=== PATIENT | female | born 1995 | race Two or more races ===

== ENCOUNTER 2023-01-12 13:56 | Inpatient (IN) | payer MEDICAID ==
[~2023-01-12] VITALS: Ht 154.9 cm; Wt 58.0 kg
[2023-01-12] MEDS ORDERED: LIDOCAINE VISCOUS 2% 15ML UD MT ONE (14:30)
[2023-01-12] MEDS ORDERED: MAALOX PLUS or MAALOX 30 ML PO ONE (14:30)
[2023-01-12 14:39] LABS: Basophils # (auto) 0 10 ^3/uL (0-0.2); Basophils % (auto) 0.2 % (0.0-2.0); Eosinophils # (auto) 0.1 10 ^3/uL (0-0.8); Eosinophils % (auto) 0.6 % (0.0-7.0); Hemoglobin 14.1 g/dL (12.2-16.2); Lymphocytes # (auto) 1.1 10 ^3/uL (0.4-5.4); Lymphocytes % (auto) 8.8 % (10.0-50.0); Mean Corpuscular Hemoglobin 29.8 pg (28.0-32.0); Mean Corpuscular Hgb Conc. 33.5 g/dL (32.0-36.0); Monocytes # (auto) 0.4 10 ^3/uL (0-1.3); Monocytes % (auto) 3.5 % (0.0-12.0); Neutrophils # (auto) 10.5 10 ^3/uL (1.6-8.6); Neutrophils % (auto) 86.9 % (37.0-80.0); Red Blood Cells 4.72 10^6/uL (4.0-5.20); Red Cell Distribution Width 12.5 % (11.8-14.3); White Blood Cell 12.1 10^3/uL (4.4-10.8)
[2023-01-12 14:57] LABS: Alanine Aminotransferase 11 U/L (7-40); Albumin 4.6 g/dL (3.2-4.8); Alkaline Phosphatase 85 U/L (46-116); Anion Gap 7 (5-15); Aspartate Aminotransferase 17 U/L (13-40); BUN/Creatinine Ratio 9.8 (10.0-20.0); Blood Urea Nitrogen 8 mg/dL (9-23); Calcium 9.4 mg/dL (8.7-10.4); Carbon Dioxide 26 mmol/L (20-30); Chloride 103 mmol/L (98-107); Glucose 96 mg/dL (74-106); Lipase 48 U/L (12-53); Potassium 3.7 mmol/L (3.5-5.1); Sodium 136 mmol/L (136-145)
[2023-01-12 14:58] LABS: Bilirubin, Total 0.7 mg/dL (0.2-1.0); Total Protein 7.9 g/dL (5.7-8.2)
[2023-01-12 16:20] LABS: Urine Bacteria NONE SEEN /hpf (None Seen); Urine Blood Negative /uL (Negative); Urine Clarity Clear (Clear); Urine Color Yellow (Yellow); Urine Mucus FEW (None Seen); Urine Protein, UAD TRACE (Negative); Urine Specific Gravity 1.029 (1.001-1.035); Urine Urobilinogen Normal (Negative); Urine WBC 1 /hpf (0 - 5); Urine pH 5.5 (5.0-8.0)
[2023-01-12] MEDS ORDERED: HYDROmorphone HCL 2 MG/ML VL/or syr IV ONE (18:00)
[2023-01-12] MEDS ORDERED: SODIUM CHLORIDE 0.9% 1,000 ML IV ONE (18:00)
[2023-01-12] MEDS ORDERED: ACETAMINOPHEN 325 MG TAB PO PRN (22:45)
[2023-01-12] MEDS ORDERED: ONDANSETRON HCL 4 MG/2 ML VIAL IV PRN (22:45)
[2023-01-13] VITALS (8 sets, daily range): BP systolic 97–102; BP diastolic 61–62; PULSE 58–80; RESP 10–19; TEMP 97.7–98.7; O2SAT 94–100
[2023-01-13] MEDS ORDERED: cefTRIAXone 1GM/50ML D5W 50 ML IV ONE
[2023-01-13] MEDS: D5W/SOD CHLO 0.9% 1,000 ML IV SCH ×2 (00:10→09:28)
[2023-01-13 06:58] LABS: Basophils # (auto) 0 10 ^3/uL (0-0.2); Basophils % (auto) 0.2 % (0.0-2.0); Eosinophils # (auto) 0 10 ^3/uL (0-0.8); Eosinophils % (auto) 0.2 % (0.0-7.0); Hematocrit 39.5 % (36.0-46.0); Lymphocytes # (auto) 1.2 10 ^3/uL (0.4-5.4); Lymphocytes % (auto) 9.6 % (10.0-50.0); Mean Corpuscular Hemoglobin 29.6 pg (28.0-32.0); Mean Corpuscular Hgb Conc. 33.1 g/dL (32.0-36.0); Mean Corpuscular Volume 89.5 fL (80.0-100.0); Monocytes # (auto) 0.8 10 ^3/uL (0-1.3); Monocytes % (auto) 6.3 % (0.0-12.0); Neutrophils # (auto) 10.4 10 ^3/uL (1.6-8.6); Neutrophils % (auto) 83.7 % (37.0-80.0); Red Blood Cells 4.41 10^6/uL (4.0-5.20); Red Cell Distribution Width 12.6 % (11.8-14.3); White Blood Cell 12.4 10^3/uL (4.4-10.8)
[2023-01-13 07:07] LABS: INR 1.14 (0.9-1.15); Partial Thromboplastin Time 27.9 SEC (24.5-34.5); Prothrombin Time 11.9 sec (9.3-11.8)
[2023-01-13 07:21] LABS: Alkaline Phosphatase 76 U/L (46-116); Anion Gap 5 (5-15); BUN/Creatinine Ratio 12.5 (10.0-20.0); Blood Urea Nitrogen 9 mg/dL (9-23); Calcium 8.6 mg/dL (8.7-10.4); Carbon Dioxide 27 mmol/L (20-30); Chloride 105 mmol/L (98-107); Glucose 108 mg/dL (74-106); Potassium 3.9 mmol/L (3.5-5.1); Sodium 137 mmol/L (136-145)
[2023-01-13 07:22] LABS: Albumin 4.2 g/dL (3.2-4.8); Aspartate Aminotransferase 11 U/L (13-40)
[2023-01-13 07:23] LABS: Alanine Aminotransferase < 9 U/L (7-40); Bilirubin, Total 0.6 mg/dL (0.2-1.0); Total Protein 6.9 g/dL (5.7-8.2)
[2023-01-13] MEDS ORDERED: cefTRIAXone 1GM/50ML D5W 50 ML IV SCH ×2 (09:00→21:00)
[2023-01-13] MEDS ORDERED: HYDROmorphone HCL 2 MG/ML VL/or syr ONE (12:44)
[2023-01-13] MEDS ORDERED: SUGAMMADEX 200mg/2ml Vial (100MG/ML) IV ONE (12:44)
[2023-01-13] MEDS ORDERED: fentaNYL CITRATE 100 MCG/2 ML VL ONE (12:44)
[2023-01-13] MEDS ORDERED: MIDAZOLAM HCL 2MG/2ML 2ml VIAL (1mg/ml) ONE (12:44)
[2023-01-13] MEDS ORDERED: PROPOFOL 10 MG/ML 20 ML IV ONE (12:45)
[2023-01-13] MEDS ORDERED: ONDANSETRON HCL 4 MG/2 ML VIAL ONE (12:45)
[2023-01-13] MEDS ORDERED: GLYCOPYRROLATE 0.2 MG/ML 1ML VIAL ONE (12:45)
[2023-01-13] MEDS ORDERED: KETOROLAC TROMETH 30 MG/ML 1ML VIAL ONE (12:45)
[2023-01-13] MEDS ORDERED: LIDOCAINE 2% (LOCAL ANESTH.) PF 5ml SDV ONE (12:45)
[2023-01-13] MEDS ORDERED: DexAMETHasone SOD PHOS 10MG/1ML VIAL INJ ONE (12:45)
[2023-01-13] MEDS ORDERED: LIDOCAINE W/ EPINEPHRINE 1% 20ML VIAL ONE (13:45)
[2023-01-13] MEDS ORDERED: ONDANSETRON HCL 4 MG/2 ML VIAL IV PRN (16:00)
[2023-01-13] MEDS ORDERED: HYDROmorphone HCL 2 MG/ML VL/or syr IV PRN (16:00)
[2023-01-13] MEDS ORDERED: ACETAMINOPHEN/CODEINE#3 (300/30mg) TAB PO PRN (16:30)
[2023-01-13] MEDS: SODIUM CHLORIDE 0.9% 1,000 ML IV SCH (18:18)
[2023-01-13] MEDS: metroNIDAZOLE 500MG/100ML 100 ML IV SCH (22:12)
[2023-01-14] MEDS: HYDROcodone-ACET 5/325MG TAB PO PRN ×3 (02:48→16:53)
[2023-01-14 05:00] VITALS: BP 108/49; PULSE 59; RESP 14; TEMP 97.6; O2SAT 99
[2023-01-14 06:20] LABS: Basophils # (auto) 0 10 ^3/uL (0-0.2); Basophils % (auto) 0.1 % (0.0-2.0); Eosinophils # (auto) 0 10 ^3/uL (0-0.8); Hematocrit 36.2 % (36.0-46.0); Hemoglobin 12.2 g/dL (12.2-16.2); Lymphocytes # (auto) 0.9 10 ^3/uL (0.4-5.4); Lymphocytes % (auto) 5.8 % (10.0-50.0); Mean Corpuscular Hemoglobin 30.2 pg (28.0-32.0); Mean Corpuscular Hgb Conc. 33.7 g/dL (32.0-36.0); Mean Corpuscular Volume 89.4 fL (80.0-100.0); Monocytes # (auto) 0.8 10 ^3/uL (0-1.3); Monocytes % (auto) 5.5 % (0.0-12.0); Neutrophils # (auto) 13.4 10 ^3/uL (1.6-8.6); Neutrophils % (auto) 88.6 % (37.0-80.0); Red Blood Cells 4.05 10^6/uL (4.0-5.20); Red Cell Distribution Width 12.5 % (11.8-14.3); White Blood Cell 15.1 10^3/uL (4.4-10.8)
[2023-01-14 06:39] LABS: Anion Gap 7 (5-15); Carbon Dioxide 26 mmol/L (20-30); Chloride 107 mmol/L (98-107); Potassium 4.1 mmol/L (3.5-5.1); Sodium 140 mmol/L (136-145)
[2023-01-14 06:40] LABS: Calcium 8.8 mg/dL (8.5-10.1)
[2023-01-14 06:46] LABS: Glucose 103 mg/dL (74-106)
[2023-01-14] MEDS: metroNIDAZOLE 500MG/100ML 100 ML IV SCH (06:46)
[2023-01-14 06:49] LABS: BUN/Creatinine Ratio 7.9 (10.0-20.0); Blood Urea Nitrogen < 5 mg/dL (9-23)
[2023-01-14] MEDS: MORPHINE SULFATE INJ 2 MG/ml SYRG IV PRN ×3 (07:03→20:53)
[2023-01-14 08:00] VITALS: BP 102/62; PULSE 64; PULSE 68; RESP 16; RESP 18; TEMP 98.2; O2SAT 100; O2SAT 96
[2023-01-14] MEDS: SODIUM CHLORIDE 0.9% 1,000 ML IV SCH ×2 (09:24→20:57)
[2023-01-14] MEDS: PIPERACILLIN-TAZOB 3.375GM 100 ML IV SCH ×2 (11:39→20:52)
[2023-01-14 12:00] VITALS: BP 118/67; PULSE 68; RESP 16; TEMP 98.1; O2SAT 100
[2023-01-14 16:05] VITALS: BP 107/58; PULSE 76; RESP 18; TEMP 97.8; O2SAT 97
[2023-01-14 22:00] VITALS: BP 113/73; PULSE 77; RESP 18; TEMP 98.4; O2SAT 96
[2023-01-15] MEDS: PIPERACILLIN-TAZOB 3.375GM 100 ML IV SCH ×2 (03:45→12:18)
[2023-01-15 05:00] VITALS: BP 108/63; PULSE 73; RESP 18; TEMP 98.4; O2SAT 96
[2023-01-15 06:10] LABS: Anion Gap 7 (5-15); Carbon Dioxide 26 mmol/L (20-30); Chloride 106 mmol/L (98-107); Potassium 3.7 mmol/L (3.5-5.1); Sodium 139 mmol/L (136-145)
[2023-01-15 06:11] LABS: Calcium 8.3 mg/dL (8.7-10.4)
[2023-01-15 06:16] LABS: BUN/Creatinine Ratio 6.7 (10.0-20.0); Blood Urea Nitrogen 5 mg/dL (9-23); Glucose 83 mg/dL (74-106)
[2023-01-15 06:21] LABS: Basophils # (auto) 0 10 ^3/uL (0-0.2); Basophils % (auto) 0.2 % (0.0-2.0); Eosinophils # (auto) 0 10 ^3/uL (0-0.8); Eosinophils % (auto) 0.3 % (0.0-7.0); Hemoglobin 11.5 g/dL (12.2-16.2); Lymphocytes # (auto) 1.1 10 ^3/uL (0.4-5.4); Lymphocytes % (auto) 13.1 % (10.0-50.0); Mean Corpuscular Hemoglobin 30.3 pg (28.0-32.0); Mean Corpuscular Hgb Conc. 33.9 g/dL (32.0-36.0); Mean Corpuscular Volume 89.1 fL (80.0-100.0); Monocytes # (auto) 0.7 10 ^3/uL (0-1.3); Neutrophils # (auto) 6.8 10 ^3/uL (1.6-8.6); Neutrophils % (auto) 78.4 % (37.0-80.0); Red Blood Cells 3.81 10^6/uL (4.0-5.20); Red Cell Distribution Width 12.8 % (11.8-14.3); White Blood Cell 8.7 10^3/uL (4.4-10.8)
[2023-01-15] MEDS: SODIUM CHLORIDE 0.9% 1,000 ML IV SCH ×2 (08:30→12:18)
[2023-01-15 09:00] VITALS: BP 108/64; PULSE 85; RESP 18; TEMP 97.7; O2SAT 99
[2023-01-15] MEDS ORDERED: FLEET ENEMA(ADULT) 135 ML PR ONE (09:00)
[2023-01-15] MEDS ORDERED: ACE3T PO ×2 (10:06)
[2023-01-15] MEDS ORDERED: DOCU-94 PO ×3 (10:06→12:19)
[2023-01-15] MEDS ORDERED: AMOX500T86 PO ×3 (10:06→12:19)
[2023-01-15] MEDS ORDERED: LACTULOSE 20Gm/30ML SOLN PO ONE (11:00)
[2023-01-15] MEDS ORDERED: TRAM-711 PO (12:19)
[2023-01-15 13:00] VITALS: BP 107/71; PULSE 80; RESP 18; TEMP 99.1; O2SAT 99
[2023-01-15] MEDS ORDERED: DOCUSATE SOD 100 MG CAP PO SCH (22:00)
== END 2023-01-15 18:15 | disposition home or self-care (01) | DRG 710 ==
LOC: ER 13:56 → OVERFLOW 23:52 → CENTRAL 01-13 09:06
PROVIDERS: ADMIT Nurse Practitioner Family; ATTEND Nurse Practitioner Acute Care
PROC: 0DTJ4ZZ Resection of Appendix, Percutaneous Endoscopic Approach (ICD-10-PCS; principal; 2023-01-13 14:03)
DX: A41.9 Sepsis, unspecified organism (principal); K86.2 Cyst of pancreas; K35.80 Unspecified acute appendicitis; N83.201 Unspecified ovarian cyst, right side
CPT/HCPCS: 36415; 74176; 80048; 80053; 81001; 81025; 83690; 84484; 85025; 85610; 85730; 96361; 96365; 96375; 97163; G0378; J0696; J1100; J1885; J2001; J2250; J2405; J2543; J2704; J3490

== ENCOUNTER 2023-04-08 10:08 | Emergency (ER) | payer MEDICAID ==
[~2023-04-08] VITALS: Ht 152.4 cm; Wt 59.7 kg
[~2023-04-08 10:08] MED LIST: AMOX500T86 PO; DOCU-94 PO; TRAM-711 PO
[2023-04-08 11:05] VITALS: BP 116/61; PULSE 108; RESP 18; TEMP 97.7; O2SAT 99
[2023-04-08] MEDS ORDERED: KETOROLAC TROMETH 60MG/2ML VIAL IM ONE (11:15)
[2023-04-08 11:41] LABS: Urine Bacteria FEW /hpf (None Seen); Urine Blood 2+ /uL (Negative); Urine Clarity Clear (Clear); Urine Color Yellow (Yellow); Urine Mucus FEW (None Seen); Urine Protein, UAD TRACE (Negative); Urine Specific Gravity 1.019 (1.001-1.035); Urine Urobilinogen Normal (Negative); Urine WBC 67 /hpf (0 - 5); Urine WBC Clumps PRESENT /hpf (None Seen)
[2023-04-08] MEDS ORDERED: cefTRIAXone SOD 500 MG VL IM ONE (12:15)
[2023-04-08] MEDS ORDERED: IBUP1TAB5 PO (12:24)
[2023-04-08] MEDS ORDERED: NITR-87 PO (12:24)
== END 2023-04-08 12:44 | disposition home or self-care (01) ==
LOC: ER 10:08
DX: N30.90 Cystitis, unspecified without hematuria (principal)
CPT/HCPCS: 81001; 96372; 99284; J0696; J1885